=== PATIENT | male | born 1965 | race Caucasian/White ===

== ENCOUNTER 2017-07-28 10:46 | Day surgery (SDC) | payer MEDICARE, OTHER ==
[~2017-07-28] VITALS: Ht 177.8 cm; Wt 99.6 kg
[~2017-07-28 10:46] MED LIST: ALBU90OI6 INH; Accuneb1.25 MG/3; BUDE10.22 INH; CYCL10 PO; FLUT44OIA IH; IBUP800 PO; PROAIR RESPICL90 MCG INH
== END 2017-07-28 12:25 | disposition home or self-care (01) ==
LOC: ORSCSDS 10:46
PROVIDERS: Internal Medicine Gastroenterology
PROC: 0DBM8ZX Excision of Descending Colon, Via Natural or Artificial Opening Endoscopic, Diagnostic (ICD-10-PCS; principal; 2017-07-28 14:15)
DX: Z12.11 Encounter for screening for malignant neoplasm of colon (principal); D12.4 Benign neoplasm of descending colon; K64.8 Other hemorrhoids; K57.30 Diverticulosis of large intestine without perforation or abscess without bleeding; Z86.010 Personal history of colon polyps; Z80.0 Family history of malignant neoplasm of digestive organs; Z87.891 Personal history of nicotine dependence; E66.9 Obesity, unspecified; Z68.33 Body mass index [BMI] 33.0-33.9, adult
CPT/HCPCS: 88305

== ENCOUNTER → 2018-01-06 | Outpatient (CLI) | payer MEDICARE, OTHER | LOC: LAB 11:50 → LAB SHORT 11:50 | DX: J45.901 Unspecified asthma with (acute) exacerbation (principal) | CPT/HCPCS: 87070; 87205 ==

== ENCOUNTER → 2022-11-04 | Outpatient (CLI) | payer MEDICARE, OTHER ==
[~2022-11-04] MED LIST changes: +BREO ELLIPTA 21 EAC1 IH; +LOSARTAN POTASS25 M2 PO; +MONT10T PO; +PRED20 PO; +Zithromax500 MG PO
== END ==
LOC: LAB SHORT 15:37 → PLD 15:37 → LAB 15:37
DX: D23.39 Other benign neoplasm of skin of other parts of face (principal); L70.0 Acne vulgaris
CPT/HCPCS: 88305